=== PATIENT | female | born 1990 | race Asian ===

== ENCOUNTER 2021-08-03 06:35 | Inpatient (IN) | payer OTHER ==
[2021-08-03] MEDS ORDERED: CITRIC ACID/SODIUM CITRATE 30 ML UNIT-DOSE CUP PO ONE (07:05)
[2021-08-03] MEDS ORDERED: IBUPROFEN 600 MG TABLET (FP) PO PRN (07:11)
[2021-08-03] MEDS ORDERED: BENZOCAINE 20% 57 GM BOTTLE TP PRN (07:11)
[2021-08-03] MEDS ORDERED: METHYLERGONOVINE MALEATE 0.2 MG/1 ML AMP IM PRN (07:11)
[2021-08-03] MEDS ORDERED: ACETAMINOPHEN 325 MG TABLET (FP) PO PRN (07:11)
[2021-08-03] MEDS ORDERED: ELECTROLYTE-148 SOLN 1,000 ML IV SCH (07:15)
[2021-08-03 07:49] VITALS: BMI 33.6
[2021-08-03] MEDS ORDERED: morphine SULFATE/PF 1 MG/2 ML (2cc Syringe - QUVA) ONE (08:21)
[2021-08-03] MEDS ORDERED: PROPOFOL 20 ML ONE (08:24)
[2021-08-03] MEDS: OXYTOCIN 20 UNITS in 0.9% NS 20 UNIT/1,000 ML INFUS.BAG IV SCH ×2 (08:51→15:55)
[2021-08-03] MEDS: PRENATAL VITAMINS W/ FOLIC ACID TABLET (FP) PO SCH (10:00)
[2021-08-03] MEDS ORDERED: KETOROLAC TROMETHAMINE 30 MG/1 ML VIAL IVPUSH PRN (10:27)
[2021-08-03] MEDS: IBUPROFEN 800 MG/8 ML IJ IVPB PRN ×2 (10:30→20:48)
[2021-08-03 10:51] LABS: CORD BASE EXCESS -4.9 mmol/L (0-2); CORD HCO3 23.2 mmHg (20-29); CORD PCO2 55.2 mmHg (30-78); CORD pH 7.241 (7.14-7.44)
[2021-08-03 10:54] LABS: CORD HCO3 19.9 mmHg (20-29); CORD PCO2 37.2 mmHg (30-78); CORD pH 7.347 (7.14-7.44)
[2021-08-03 11:04] LABS: METHADONE, UR NEGATIVE (NEGATIVE); PHENCYCLIDINE,URINE NEGATIVE (NEGATIVE)
[2021-08-03 11:05] LABS: COCAINE, UR NEGATIVE (NEGATIVE); OPIATES, URI NEGATIVE (NEGATIVE); URINE BARBITURATES NEGATIVE (NEGATIVE)
[2021-08-03 11:16] LABS: URINE AMPHETAMINES NEGATIVE (NEGATIVE); URINE BENZODIAZEPINES NEGATIVE (NEGATIVE)
[2021-08-03] MEDS: SIMETHICONE 80 MG TAB.CHEW (FP) PO PRN (20:48)
[2021-08-04] MEDS ORDERED: BISACODYL 10 MG SUPP.RECT RC PRN (07:11)
[2021-08-04 08:23] LABS: BASO % 0.4 % (0-2.0); HEMATOCRIT 24.9 % (32.4-45.2); HEMOGLOBIN 8.3 GM/dL (10.7-15.3); LYMPH % 19.2 % (8-40); MCH 28.5 pg (25.7-33.7); MCHC 33.4 g/dl (32.0-36.0); MEAN CELL VOLUME 85.4 fl (80-96); MEAN PLT VOLUME 9.2 fl (7.5-11.1); MONO % 7.1 % (3.8-10.2); NEUT % 70.3 % (42.8-82.8); PLATELET COUNT 159 10^3/uL (134-434); RBC 2.91 M/mm3 (3.60-5.2); RDW 15.6 % (11.6-15.6); WHITE BLOOD COUNT 8.7 K/mm3 (4.0-10.0)
[2021-08-04] MEDS: SIMETHICONE 80 MG TAB.CHEW (FP) PO PRN ×3 (10:15→21:10)
[2021-08-04] MEDS: PRENATAL VITAMINS W/ FOLIC ACID TABLET (FP) PO SCH (10:15)
[2021-08-04] MEDS: oxyCODONE HCL 5 MG TABLET PO PRN ×3 (10:16→21:10)
[2021-08-05] MEDS: oxyCODONE HCL 5 MG TABLET PO PRN ×2 (06:23→15:55)
[2021-08-05] MEDS: SIMETHICONE 80 MG TAB.CHEW (FP) PO PRN ×2 (06:23→15:55)
[2021-08-05] MEDS: PRENATAL VITAMINS W/ FOLIC ACID TABLET (FP) PO SCH (10:30)
[2021-08-06 08:26] LABS: BASO % 0.6 % (0-2.0); EOS % 4.7 % (0-4.5); HEMATOCRIT 25.4 % (32.4-45.2); HEMOGLOBIN 8.5 GM/dL (10.7-15.3); LYMPH % 20.9 % (8-40); MCH 28.6 pg (25.7-33.7); MCHC 33.6 g/dl (32.0-36.0); MEAN CELL VOLUME 85.3 fl (80-96); MEAN PLT VOLUME 8.5 fl (7.5-11.1); MONO % 6.6 % (3.8-10.2); NEUT % 67.2 % (42.8-82.8); PLATELET COUNT 213 10^3/uL (134-434); RBC 2.98 M/mm3 (3.60-5.2); RDW 15.7 % (11.6-15.6); WHITE BLOOD COUNT 7.3 K/mm3 (4.0-10.0)
[2021-08-06] MEDS: PRENATAL VITAMINS W/ FOLIC ACID TABLET (FP) PO SCH (10:35)
[2021-08-06 14:06] VITALS: BP 110/75; PULSE 82; TEMP 98.5
== END 2021-08-06 12:45 | disposition home or self-care (01) | DRG 540 ==
LOC: JLDR 06:35 → J3W 10:52
PROVIDERS: ADMIT Obstetrics & Gynecology; ATTEND Obstetrics & Gynecology
PROC: 10D00Z1 Extraction of Products of Conception, Low, Open Approach (ICD-10-PCS; principal; 2021-08-03)
DX: O34.211 Maternal care for low transverse scar from previous cesarean delivery (principal); N85.8 Other specified noninflammatory disorders of uterus; Z3A.39 39 weeks gestation of pregnancy; Z37.0 Single live birth
CPT/HCPCS: 36415; 36600; 80048; 80053; 80307; 82803; 84702; 85025; 85610; 85730; 86780; 86850; 86900; 86901; 88307-TC; 93005; 93010; C9803-CS; U0003; U0005

== ENCOUNTER 2023-11-15 05:15 | Inpatient (IN) | payer OTHER ==
[2023-11-15] MEDS: ELECTROLYTE-148 SOLN 500 ML IV ONE (06:10)
[2023-11-15 06:52] LABS: EOS % 1.4 % (0-4.5); HEMOGLOBIN 8.4 GM/dL (10.7-15.3); LYMPH % 25.2 % (8-40); MCH 22.4 pg (25.7-33.7); MEAN CELL VOLUME 72.4 fl (80-96); MEAN PLT VOLUME 9.5 fl (7.5-11.1); MONO % 5.2 % (3.8-10.2); NEUT % 67.2 % (42.8-82.8); PLATELET COUNT 233 10^3/uL (134-434); RBC 3.73 M/mm3 (3.60-5.2); RDW 19.2 % (11.6-15.6); WHITE BLOOD COUNT 11.8 K/mm3 (4.0-10.0)
[2023-11-15 07:00] VITALS: BMI 26.1
[2023-11-15] MEDS: ELECTROLYTE-148 SOLN 1,000 ML IV SCH (07:00)
[2023-11-15 07:01] LABS: INR 0.86 (0.83-1.09); PROTHROMBIN TIME (PATIENT) 9.9 SEC (9.7-13.0)
[2023-11-15 07:04] LABS: ACTIVATED PTT 25.5 SECONDS (25.2-36.5)
[2023-11-15] MEDS ORDERED: METHYLERGONOVINE MALEATE 0.2 MG/1 ML AMP IM PRN (07:14)
[2023-11-15] MEDS ORDERED: IBUPROFEN 800 MG/8 ML IJ IVPB PRN (07:14)
[2023-11-15 07:17] LABS: POTASSIUM 3.9 mmol/L (3.5-5.1)
[2023-11-15 07:18] LABS: CALCIUM 8.4 mg/dL (8.5-10.1)
[2023-11-15 07:19] LABS: BLOOD UREA NITROGEN 7.7 mg/dL (7-18)
[2023-11-15 07:22] LABS: CREATININE 0.4 mg/dL (0.55-1.3)
[2023-11-15] MEDS ORDERED: ONDANSETRON 4 MG/2 ML VIAL IVPUSH PRN (10:25)
[2023-11-15] MEDS: CITRIC ACID/SODIUM CITRATE 30 ML UNIT-DOSE CUP PO ONE (10:50)
[2023-11-15] MEDS ORDERED: FENTANYL CITRATE/PF 50 MCG/ML VIAL ONE (11:13)
[2023-11-15] MEDS ORDERED: morphine SULFATE/PF 1 MG/2 ML (2cc Syringe - QUVA) ONE (11:13)
[2023-11-15] MEDS ORDERED: ceFAZolin SODIUM 1 GM VIAL ONE ×2 (11:16→11:17)
[2023-11-15] MEDS ORDERED: ONDANSETRON 4 MG/2 ML VIAL ONE ×2 (11:16)
[2023-11-15] MEDS ORDERED: DEXAMETHASONE SOD PHOSPHATE 4 MG/1 ML VIAL ONE (11:44)
[2023-11-15] MEDS ORDERED: KETOROLAC TROMETHAMINE 30 MG/1 ML VIAL ONE (11:45)
[2023-11-15] MEDS ORDERED: OXYTOCIN 10 UNITS/ML VIAL ONE ×3 (12:11)
[2023-11-15 12:46] LABS: CORD BASE EXCESS -4.2 mmol/L (0-2); CORD HCO3 23.6 mmHg (20-29); CORD PCO2 53.4 mmHg (30-78); CORD pH 7.263 (7.14-7.44)
[2023-11-15 12:47] LABS: CORD HCO3 21.7 mmHg (20-29); CORD PCO2 38.2 mmHg (30-78); CORD pH 7.373 (7.14-7.44)
[2023-11-15 13:46] LABS: HIV INTERPRETATION NEGATIVE (NEGATIVE)
[2023-11-15] MEDS: OXYTOCIN 20 UNITS in 0.9% NS 20 UNIT/1,000 ML INFUS.BAG IV SCH (14:00)
[2023-11-15] MEDS ORDERED: OXYTOCIN 20 UNITS in 0.9% NS 20 UNIT/1,000 ML INFUS.BAG IV ONE (14:18)
[2023-11-15] MEDS ORDERED: oxyCODONE HCL 5 MG TABLET PO PRN ×2 (19:14)
[2023-11-16] MEDS: IBUPROFEN 600 MG TABLET (FP) PO PRN (05:57)
[2023-11-16] MEDS ORDERED: BISACODYL 10 MG SUPP.RECT RC PRN (07:14)
[2023-11-16] MEDS: ACETAMINOPHEN 325 MG TABLET (FP) PO PRN (09:09)
[2023-11-16] MEDS: FERROUS SO4 325 MG TABLET (FP) PO SCH (09:09)
[2023-11-16] MEDS: PRENATAL VITAMINS W/ FOLIC ACID TABLET (FP) PO SCH (09:09)
[2023-11-16 09:35] LABS: BASO % 0.9 % (0-2.0); EOS % 1.1 % (0-4.5); HEMATOCRIT 22.2 % (32.4-45.2); MCH 22.1 pg (25.7-33.7); MEAN CELL VOLUME 71.2 fl (80-96); MEAN PLT VOLUME 9.4 fl (7.5-11.1); MONO % 5.9 % (3.8-10.2); NEUT % 71.1 % (42.8-82.8); PLATELET COUNT 201 10^3/uL (134-434); RBC 3.12 M/mm3 (3.60-5.2); RDW 19.2 % (11.6-15.6); WHITE BLOOD COUNT 14.2 K/mm3 (4.0-10.0)
[2023-11-16 09:48] LABS: HEMOGLOBIN 6.9 GM/dL (10.7-15.3)
[2023-11-16] MEDS ORDERED: DIPHTH,PERTUSS(ACELL),TET 0.5 ML DISP.SYRIN IM ONE (10:00)
[2023-11-16] MEDS: SIMETHICONE 80 MG TAB.CHEW (FP) PO PRN (11:09)
[2023-11-17 08:16] LABS: MCH 23.8 pg (25.7-33.7); MEAN CELL VOLUME 74.4 fl (80-96); MEAN PLT VOLUME 8.7 fl (7.5-11.1); PLATELET COUNT 191 10^3/uL (134-434); RBC 3.36 M/mm3 (3.60-5.2); RDW 19.5 % (11.6-15.6)
[2023-11-17 09:31] LABS: ANISOCYTOSIS 1+; MACROCYTOSIS 0
[2023-11-18 08:32] LABS: HEMATOCRIT 25.9 % (32.4-45.2); HEMOGLOBIN 8.2 GM/dL (10.7-15.3); MCH 23.7 pg (25.7-33.7); MCHC 31.6 g/dl (32.0-36.0); MEAN CELL VOLUME 74.9 fl (80-96); MEAN PLT VOLUME 8.8 fl (7.5-11.1); PLATELET COUNT 196 10^3/uL (134-434); RBC 3.45 M/mm3 (3.60-5.2); RDW 20.2 % (11.6-15.6); WHITE BLOOD COUNT 10.6 K/mm3 (4.0-10.0)
[2023-11-18 09:25] VITALS: BP 117/63; PULSE 78; RESP 16; TEMP 98.2
[2023-11-18 10:04] LABS: ANISOCYTOSIS 1+; MACROCYTOSIS 0
== END 2023-11-18 15:20 | disposition home or self-care (01) | DRG 540 ==
LOC: JLDR 05:15 → J3W 15:15
PROVIDERS: ADMIT Obstetrics & Gynecology; ATTEND Obstetrics & Gynecology
PROC: 10D00Z1 Extraction of Products of Conception, Low, Open Approach (ICD-10-PCS; principal; 2023-11-15)
PROC: 30233N1 Transfusion of Nonautologous Red Blood Cells into Peripheral Vein, Percutaneous Approach (ICD-10-PCS; 2023-11-16)
DX: O34.211 Maternal care for low transverse scar from previous cesarean delivery (principal); O99.02 Anemia complicating childbirth; D64.9 Anemia, unspecified; Z3A.39 39 weeks gestation of pregnancy; Z37.0 Single live birth
CPT/HCPCS: 36415; 36430; 36600; 59409; 80048; 82803; 85025; 85610; 85730; 86780; 86803; 86850; 86900; 86901; 86922; 87389; 88307-TC; 94010; P9038; P9058